=== PATIENT | male | born 1950 | race Caucasian/White ===

== ENCOUNTER 2024-03-28 03:37 | Outpatient (CLI) | payer MEDICARE, SELFPAY | END 2024-03-28 03:38 | disposition home or self-care (01) | PROVIDERS: Visit Provider Family Medicine | DX: M25.562 Pain in left knee (principal); Z98.890 Other specified postprocedural states | CPT/HCPCS: A0425; A0433 ==

== ENCOUNTER 2025-06-18 08:29 | Outpatient (CLI) | payer MEDICARE, SELFPAY | END 2025-06-18 08:30 | disposition home or self-care (01) | LOC: AMB 06-22 14:08 | PROVIDERS: Visit Provider Internal Medicine | DX: M25.561 Pain in right knee (principal) | CPT/HCPCS: A0425; A0427 ==